=== PATIENT | female | born 1935 | race Caucasian/White ===

== ENCOUNTER 2020-05-07 01:39 | Emergency (ER) | payer OTHER ==
[~2020-05-07] VITALS: Ht 165.1 cm; Wt 113.4 kg
[2020-05-07 02:23] VITALS: Ht 165.1 cm; Wt 113.4 kg
[2020-05-07 02:48] LABS: BASOPHIL % 0.3 % (0-2); PLATELET COUNT 267 x10^3mcL (130-400); RED CELL DISTRIBUTION WIDTH 13.9 % (11.5-14.5)
[2020-05-07 02:53] LABS: CALCIUM 9.4 mg/dL (8.5-10.1); CARBON DIOXIDE 33.3 mmol/L (21-32); CHLORIDE SERUM 94 mmol/L (98-107); GLUCOSE SERUM 202 mg/dL (74-106); POTASSIUM SERUM 3.4 mmol/L (3.5-5.1); SODIUM SERUM 133 mmol/L (136-145)
[2020-05-07 02:58] LABS: ALBUMIN 3.6 g/dL (3.4-5.0); ALKALINE PHOSPHATASE 39 U/L (46-116); ALT/SGPT 26 U/L (14-59); AST/SGOT 26 U/L (15-37); BILIRUBIN TOTAL 0.6 mg/dL (0.20-1.00); LIPASE 164 IU/L (73-393); TOTAL PROTEIN, SERUM 7.9 g/dL (6.4-8.2)
[2020-05-07 03:43] LABS: microscopic required? YES; urine erythrocyte NEGATIVE (NEGATIVE)
[2020-05-07 06:24] VITALS: BP 150/88
== END 2020-05-07 06:24 | disposition home or self-care (01) ==
LOC: ED 01:39
PROVIDERS: Emergency Medicine
DX: N39.0 Urinary tract infection, site not specified (principal); R11.10 Vomiting, unspecified; R19.7 Diarrhea, unspecified; F03.90 Unspecified dementia, unspecified severity, without behavioral disturbance, psychotic disturbance, mood disturbance, and anxiety; I10 Essential (primary) hypertension; Z90.49 Acquired absence of other specified parts of digestive tract; Z90.89 Acquired absence of other organs; Z88.0 Allergy status to penicillin; Z88.1 Allergy status to other antibiotic agents; Z88.7 Allergy status to serum and vaccine
CPT/HCPCS: 83880; J0696; J7030; J7060; Q0092

== ENCOUNTER 2020-05-18 02:33 | Inpatient (IN) | payer OTHER ==
[~2020-05-18] VITALS: Ht 172.7 cm; Wt 104.3 kg
[2020-05-18 02:35] VITALS: Ht 172.7 cm; Wt 104.3 kg
[2020-05-18 03:15] LABS: BASOPHIL % 0.4 % (0-2); PLATELET COUNT 216 x10^3mcL (130-400); RED CELL DISTRIBUTION WIDTH 13.7 % (11.5-14.5)
[2020-05-18 03:32] LABS: CALCIUM 8.7 mg/dL (8.5-10.1); CARBON DIOXIDE 34.3 mmol/L (21-32); CHLORIDE SERUM 92 mmol/L (98-107); CREATININE SERUM 1.1 mg/dL (0.6-1.0); GLUCOSE SERUM 204 mg/dL (74-106); POTASSIUM SERUM 3.2 mmol/L (3.5-5.1); SODIUM SERUM 129 mmol/L (136-145)
[2020-05-18 03:36] LABS: ALKALINE PHOSPHATASE 37 U/L (46-116); ALT/SGPT 23 U/L (14-59); AST/SGOT 21 U/L (15-37); BILIRUBIN TOTAL 1.1 mg/dL (0.20-1.00); LACTIC DEHYDROGENASE (LDH) 167 U/L (100-190); TOTAL PROTEIN, SERUM 6.8 g/dL (6.4-8.2)
[2020-05-18 03:39] LABS: C REACTIVE PROTEIN 13.6 mg/dL (<=0.9)
[2020-05-18 04:41] LABS: microscopic required? YES; urine erythrocyte 1+ (NEGATIVE)
[2020-05-18] MEDS ORDERED: CHLORTHALIDONE25 MG PO (04:57)
[2020-05-18] MEDS ORDERED: QUETIAPINE FUMA25 M1 PO (04:57)
[2020-05-18] MEDS ORDERED: SYNTHROID0.075 MG PO (04:58)
[2020-05-18] MEDS ORDERED: COZAAR25 M1 PO (04:59)
[2020-05-18] MEDS ORDERED: DRAMAMINE LESS25 MG PO (04:59)
[2020-05-18] MEDS ORDERED: MEMANTINE HCL10 MG PO (05:01)
[2020-05-18] MEDS ORDERED: PANTOPRAZOLE SO40 M1 PO (05:02)
[2020-05-18] MEDS ORDERED: PRA10 (05:02)
[2020-05-18] MEDS ORDERED: PROMETHAZINE-D473 M1 (05:04)
[2020-05-18 13:36] VITALS: BP 159/70
[2020-05-18 15:35] VITALS: BP 124/62
[2020-05-18 15:59] VITALS: BP 120/71
[2020-05-18 16:50] VITALS: BP 149/72
[2020-05-18 21:09] VITALS: BP 153/70
[2020-05-19 05:28] VITALS: BP 139/74
[2020-05-19 07:08] LABS: PLATELET COUNT 190 x10^3mcL (130-400)
[2020-05-19 07:18] LABS: BASOPHIL % 0 % (0-2)
[2020-05-19 07:32] LABS: CALCIUM 8.3 mg/dL (8.5-10.1); CARBON DIOXIDE 31.6 mmol/L (21-32); CREATININE SERUM 0.9 mg/dL (0.6-1.0); GLUCOSE SERUM 158 mg/dL (74-106); SODIUM SERUM 133 mmol/L (136-145)
[2020-05-19 07:35] LABS: CHLORIDE SERUM 96 mmol/L (98-107); POTASSIUM SERUM 2.9 mmol/L (3.5-5.1)
[2020-05-19 08:47] VITALS: BP 137/59
[2020-05-19 12:55] VITALS: BP 145/53
[2020-05-19 16:31] VITALS: BP 115/64
[2020-05-19 21:59] VITALS: BP 150/60
[2020-05-20 05:47] VITALS: BP 150/75
[2020-05-20 06:55] LABS: CALCIUM 8.2 mg/dL (8.5-10.1); CARBON DIOXIDE 31.5 mmol/L (21-32); CHLORIDE SERUM 100 mmol/L (98-107); CREATININE SERUM 0.9 mg/dL (0.6-1.0); GLUCOSE SERUM 142 mg/dL (74-106); SODIUM SERUM 138 mmol/L (136-145)
[2020-05-20 07:09] LABS: BASOPHIL % 0.1 % (0-2); PLATELET COUNT 207 x10^3mcL (130-400); RED CELL DISTRIBUTION WIDTH 13.6 % (11.5-14.5)
[2020-05-20 08:33] VITALS: BP 158/73
[2020-05-20 12:20] VITALS: BP 114/66
[2020-05-20] MEDS ORDERED: LEVAQUIN500 M1 PO (13:13)
[2020-05-20 17:06] VITALS: BP 107/59
[2020-05-20 20:48] VITALS: BP 103/50
[2020-05-21 05:16] VITALS: BP 143/64
[2020-05-21 07:12] LABS: BASOPHIL % 1.6 % (0-2); PLATELET COUNT 217 x10^3mcL (130-400); RED CELL DISTRIBUTION WIDTH 14.1 % (11.5-14.5)
[2020-05-21 07:30] LABS: CALCIUM 8.3 mg/dL (8.5-10.1); CARBON DIOXIDE 29.3 mmol/L (21-32); CHLORIDE SERUM 104 mmol/L (98-107); CREATININE SERUM 0.7 mg/dL (0.6-1.0); GLUCOSE SERUM 140 mg/dL (74-106); POTASSIUM SERUM 3.2 mmol/L (3.5-5.1); SODIUM SERUM 140 mmol/L (136-145)
[2020-05-21 09:27] VITALS: BP 140/68
[2020-05-21 09:29] VITALS: BP 158/80
[2020-05-21 12:33] VITALS: BP 126/63
[2020-05-21 14:59] VITALS: BP 124/65
[2020-05-21 16:34] VITALS: BP 162/74
== END 2020-05-21 16:20 | DRG 872 ==
LOC: ED 02:33 → DU 04:52
PROVIDERS: Emergency Medicine; ADMIT Internal Medicine; ATTEND Internal Medicine
DX: A41.9 Sepsis, unspecified organism (principal); N39.0 Urinary tract infection, site not specified; E87.1 Hypo-osmolality and hyponatremia; N17.9 Acute kidney failure, unspecified; L03.116 Cellulitis of left lower limb; L03.115 Cellulitis of right lower limb; F03.90 Unspecified dementia, unspecified severity, without behavioral disturbance, psychotic disturbance, mood disturbance, and anxiety; E87.6 Hypokalemia; I10 Essential (primary) hypertension; E03.9 Hypothyroidism, unspecified; Z20.828 Contact with and (suspected) exposure to other viral communicable diseases
CPT/HCPCS: 82962; 83880; 85378; 87804; 97110-GP; 97116-GP; 97530-GP; G0378; J1956; J3535; J7030; Q0092; U0003-CS